=== PATIENT | female | born 1965 | race Caucasian/White ===

== ENCOUNTER 2024-03-04 08:26 | Outpatient (REF) | payer OTHER, SELFPAY ==
--- NOTE | ~2024-03-04 | US_ITS ---
EXAMINATION: US ABDOMEN COMPLETE CLINICAL INFORMATION: Upper abdominal pain. COMPARISON: None available. TECHNIQUE: Real-time imaging of the abdominal viscera. Moderately suboptimal study due to body habitus. FINDINGS: PANCREAS: Normal head and body, the tail is obscured by bowel gas. ABDOMINAL AORTA: The proximal, mid, and distal segments are normal in caliber. INFERIOR VENA CAVA: Visualized portions are normal. LIVER: The liver is enlarged measuring 22 cm.. The liver contour is normal. Parenchymal echogenicity is normal. No focal hepatic lesion. There is no intrahepatic biliary duct dilatation seen. GALLBLADDER: The gallbladder is physiologically distended. There is a 3.4 x 1.6 cm nonmobile stone in the gallbladder. Lack of mobility is likely due to its large size. No evidence of gallbladder wall thickening or pericholecystic fluid. COMMON BILE DUCT: Normal in caliber measuring 0.7 cm in diameter. RIGHT KIDNEY: Normal. No hydronephrosis. No renal calculi or focal parenchymal lesions. The kidney measures 1.1 cm in maximum dimension. LEFT KIDNEY: Normal. No hydronephrosis. No renal calculi or focal parenchymal lesions. The kidney measures 12.1 cm in maximum dimension. SPLEEN: The spleen is not well seen due to bowel gas. The spleen measures 12.4 cm in maximum dimension. FREE FLUID: None. US/US abdomen complete IMPRESSION: 1. 3.4 cm nonmobile stone in the gallbladder. Lack of mobility is likely due to its large size. 2. Hepatomegaly. 3. The tail of the pancreas and spleen are not well seen due to bowel gas.
== END 2024-03-04 08:27 | disposition home or self-care (01) ==
LOC: HO.UMASIMG 08:26
PROVIDERS: Visit Provider Nurse Practitioner
DX: R10.10 Upper abdominal pain, unspecified (principal)
CPT/HCPCS: 76700

== ENCOUNTER → 2024-11-03 08:30 | Outpatient (BNV) | payer OTHER, SELFPAY | PROVIDERS: Visit Provider Internal Medicine Cardiovascular Disease | DX: I49.1 Atrial premature depolarization (principal) | CPT/HCPCS: 93248 ==

== ENCOUNTER → 2024-11-03 15:00 | Outpatient (REF) | payer OTHER, SELFPAY ==
--- NOTE | 2024-11-03 | HM_ITS ---
Conclusion: 1. Patient was monitored for total period of 13 days and 23 hours 2. Baseline was normal sinus rhythm with average heart of 70 beats per minute 3. No significant pauses noted 4. Occasional PACs noted with no significant prolonged tachycardia 5. 1 3 beat jersey of nonsustained VT noted at 192 beats per minute 6. No patient reported events MTDD
== END ==
LOC: HO.CARD 15:00
PROVIDERS: Visit Provider Nurse Practitioner
DX: R42 Dizziness and giddiness (principal)
CPT/HCPCS: 93246